=== PATIENT | female | born 2000 | race Caucasian/White ===

== ENCOUNTER 2020-12-03 14:34 | Emergency (ER) | payer MEDICAID, SELFPAY ==
[2020-12-03 14:35] VITALS: BP 143/81; PULSE 96; RESP 18; TEMP 36.6; O2SAT 99; BMI 27.1
[2020-12-03 14:50] VITALS: BP 143/81; PULSE 96; RESP 18; TEMP 36.6; O2SAT 99; BMI 27.1
--- NOTE | 2020-12-03 15:02 | XR_ITS ---
PROCEDURE: XR HAND RT MIN 3V CLINICAL INDICATION: RIGHT THUMB SWELLING COMPARISON: No exams were available for comparison FINDINGS: No fracture or dislocation. No lytic or blastic change. There is normal mineralization. The joint spaces are well-preserved. No significant degenerative/arthritic changes. No erosive changes evident. Other findings:There is soft tissue swelling involving the right thumb. No radiopaque foreign body or soft tissue gas evident. IMPRESSION: Soft tissue swelling of the thumb otherwise negative Dictated by: Alverto Palomares MD 12/03/2020 15:24 Alverto Palomares MD in [place] 12/03/2020 15:24
[2020-12-03 15:14] VITALS: BP 143/81; PULSE 96; RESP 18; TEMP 36.6; O2SAT 99
--- NOTE | 2020-12-03 15:27 | HMH.EDUTC ---
[facility] Disposition Clinical Impression: Cellulitis Qualifiers: Site of cellulitis: unspecified site Qualified Code(s): L03.90 - Cellulitis, unspecified Disposition: Home, Self-Care Condition on Discharge: Good Instructions: Cellulitis, Cephalexin, Trimethoprim/Sulfamethoxazole (Alternative Therapy) Additional Instructions: *Start antibiotic(s) immediately and be sure to take as ordered for the FULL length of time although you may be feeling better or start to see improvement in the next 24-48 hours *Monitor closely. Outlined redness so that you can monitor easier. Follow up immediately for new or worsening symptoms including but not limited to redness, swelling, streaking from site fever or chills. *Warm compress 15 minutes 3-4 times day *Never squeeze or pop these on your own. Seek immediate medical attention next time this occurs *Monitor Temp. Tylenol every 4 hours as needed and ibuprofen every 6 hours as needed (as long as your primary care doctor has told you that it is ok to take both. For fever, aches, pain. ER if no less that 101 despite Tylenol and ibuprofen Follow up with your family doctor/primary care physician in the next 48-72 hours if no improvement Return if needed Straight to ER if any life threatening symptoms Prescriptions: Sulfamethoxazole/Trimethoprim [Bactrim DS tablet] 1 each PO BID 7 Days #14 tab Transmission Status: Pending to [id number] cephALEXin [cephALEXin 500mg capsule*] 500 mg PO Q6H 7 Days #28 cap Transmission Status: Pending to [id number] Referrals: Preeti Henderson MD [Primary Care Provider] - As needed Time of Disposition: 15:36 Medical Decision Making - Tad Inquiry Pt receiving controlled substance: No Tad was queried for this patient: No Vital Signs: 12/03/20 14:35 12/03/20 14:50 12/03/20 15:14 Temperature 97.8 F 97.8 F 97.8 F Temperature Source Oral Oral Pulse Rate 96 H Pulse Rate [Right] 96 H 96 H Respiratory Rate 18 18 18 Blood Pressure 143/81 H Blood Pressure [Right Arm] 143/81 H 143/81 H Blood Pressure Mean [Right Arm] 101 101 Blood Pressure Source [Right Arm] Automatic Cuff Blood Pressure Position [Right Arm] Sitting 02 Sat by Pulse Oximetry 99 99 Oxygen Delivery Method Room Air Room Air Orders (Tests/Meds): ORDERS Category Date Time Status Hand XR right minimum 3 views [XR hand RT min 3V] Stat Exams 12/03/20 15:02 Taken [facility] HPI - General Stated complaint: Rt thumb swollen Time Seen by Provider: 12/03/20 15:27 Mode of Arrival: Ambulatory Source of Information: Patient Limitations: No Limitations Description of Symptoms (Recalled from Triage Doc. by RN): PATIENT C/O SWELLING AND REDNESS TO RIGHT THUMB X 1 WEEK. NO KNOWN INJURY HEENT Symptoms (Recalled from RN notes): No Resp Symptoms (Recalled from RN notes): No Skin Symptoms (Recalled from RN notes): No MS Symptoms (Recalled from RN notes): Yes Functional Status (Recalled from RN notes): WNL - History of Present Illness Provider Complaint: Patient states that she notice her right thumb was swelling so she started poking it with needle and got some pus out of it but now her whole thumb started swelling, red and warm to the touch States that she was worried the infection was spreading so she came in - Related Data Previous Rx's Medication Instructions Recorded Sulfamethoxazole/Trimethoprim 1 each PO BID 7 Days #14 tab 12/03/20 [Bactrim DS tablet] cephALEXin [cephALEXin 500mg 500 mg PO Q6H 7 Days #28 cap 12/03/20 capsule*] Allergies Allergy/AdvReac Type Severity Reaction Status Date / Time No Known Allergies Allergy Verified 12/03/20 15:02 - Worker's Comp Is this a Worker's Comp case?: No [facility] History - Hepatitis A Screen Drug use history?: No High risk sexual behaviors?: No History of sexually transmitted infection?: No Currently employed?: No Childcare worker?: No Do you have indoor plumbing?: Yes Do you have electricity?: Ye
== END 2020-12-03 15:42 | disposition home or self-care (01) ==
LOC: ER 14:50 → UTC 14:51
PROVIDERS: Emergency Provider Nurse Practitioner; PCP Family Medicine
DX: L03.113 Cellulitis of right upper limb (principal)
CPT/HCPCS: 73130; 99202; G0463

== ENCOUNTER 2025-07-01 11:12 | Emergency (ER) | payer MEDICAID, SELFPAY ==
--- NOTE | 2025-07-01 11:22 | HMH.EDGENADL ---
Discharge Plan Disposition Patient Disposition: Home, Self-Care Prescriptions Prescriptions: New [id number]-[id number] [Bromfed DM] 2-30-10 mg/5 mL syrup 5 ml PO Q6H PRN (Reason: sinus symptoms) Qty: 200 0RF No Action sulfamethoxazole-trimethoprim 1 EACH tablet 1 each PO BID 7 Days Qty: 14 0RF cephalexin 500 MG capsule 500 mg PO Q6H 7 Days Qty: 28 0RF Referrals Follow up/Referrals: Preeti Henderson MD [Staff Physician, Medical] - See instructions Activity Restrictions/Add. Instructions Additional Instructions/Restrictions: Increase fluids and rest. May take Tylenol and ibuprofen for pain and fever if needed. If symptoms persist or do not improve please make appointment with PCP or return to ED. Clinical Impressions Clinical Impression: Viral infection Instructions Patient Instructions: DI for Viral Syndrome Print Language Print Language: Andorran Discharge ED Provider: Tyler Jasmine General Adult HPI <Martha Alexander (ED), DRILLER HELPER - Last Filed: 07/01/25 12:21> General Chief complaint: Upper Respiratory Infection Stated complaint: runny nose, cough Time Seen by Provider: 07/01/25 11:16 History of Present Illness HPI narrative: 25-year-old female presents to the ED today for complaint of runny nose, cough, headache for 2 weeks. Patient states that she has had no fevers or chills. No vomiting or diarrhea. She says her worst symptom right now is her headache. Her family is here including her children and her significant other for her same symptoms. Related Data Previous Rx's ?Medication ?Instructions ?Recorded cephalexin 500 mg capsule 500 mg PO Q6H 7 days #28 caps 12/03/20 sulfamethoxazole 800 1 each PO BID 7 days #14 tabs 12/03/20 mg-trimethoprim 160 mg tablet zslsqwsqnmfsgus-pcfzlerjwadmbkc-OL 5 ml PO Q6H PRN sinus symptoms 07/01/25 2 mg-30 mg-10 mg/5 mL oral syrup #200 mL (Bromfed DM) Allergies Allergy/AdvReac Type Severity Reaction Status Date / Time No Known Allergies Allergy Verified 12/03/20 15:02 PFSH <Martha Alexander (ED), DRILLER HELPER - Last Filed: 07/01/25 12:21> [facility] Disclaimer: The information contained in this section may have been updated after the patient was seen, as this information can be updated by other users. Social History Smoking Status: Never smoker alcohol intake: never current occupational status: other Travel in the last 8 weeks?: None Have you lived/traveled outside [place] in past 30 days?: No Contact w/someone who lives/traveled outside [place] past 30 days?: No Exposure to someone with infectious disease in past 14 days?: No Do you have a fever (greater than 100.4 F or 38 C)?: No Have you tested positive for COVID-19?: No Exposed to someone with COVID-19 in past 14 days?: No Do you have a sore throat?: No Do you have a cough?: No Do you have any weakness?: No Do you have any diarrhea?: No Are you experiencing any unusual bleeding?: No Do you have any muscle aches/pain?: No Do you have any abdominal pain?: No Are you experiencing loss of taste or smell?: No <Martha Alexander (ED), DRILLER HELPER - Last Filed: 07/01/25 12:21> ROS Obtained: Yes Systems reviewed as appropriate & no additional complaints except as documented Constitutional Constitutional: Reports as per HPI Physical Exam <Martha Alexander (ED), DRILLER HELPER - Last Filed: 07/01/25 12:21> General General appearance: alert and in no apparent distress Head Head exam: normocephalic Eye Eye exam: Present PERRL and EOMI ENT ENT exam: Present normal oropharynx and mucous membranes moist Neck Neck exam: Present full ROM and trachea midline Respiratory Respiratory exam: Present normal lung sounds bilaterally Cardiovascular Cardiovascular exam: Present regular rate, normal rhythm, normal heart sounds, +S1 and +S2 Abdominal Exam Abdominal exam: Present soft and normal bowel sounds Extremities Exam Extremities exam: Present full ROM Neurological Exam Neurological exam: Present alert and oriented X3 Skin Skin exam: Present warm and dry Medical Decision Making <Martha Alexander (ED), DRILLER HELPER - Last Filed: 07/01/25 12:21> Medical Records Screening: Per USPSTF and CDC recommendations, given the prevalence of disease in our region, it is our hospital?s policy to screen for HIV and viral Hepatitis for all patients aged 18 and over and those with ongoing risk factors. Tad Inquiry Pt receiving controlled substance: No Tad was queried for this patient: No Vital Signs: 07/01/25 11:31 07/01/25 12:00 Temperature 98.2 F Temperature Source Oral Pulse Rate [Right] 91 H Respiratory Rate 18 Blood Pressure [Right Arm] 132/73 Blood Pressure Mean [Right Arm] 92 Blood Pressure Source [Right Arm] Automatic Cuff Blood Pressure Position [Right Arm] Standing 02 Sat by Pulse Oximetry 98 100 Oxygen Delivery Method Room Air Lab Data Lab Results 07/01/25 11:57: Urine HCG, Qual Negative Orders (Tests/Meds): ED MEDICATIONS Discontinued Medications Generic Name Dose Route Start Last Admin Trade Name Freq PRN Reason Stop Dose Admin Acetaminophen 1,000 mg 07/01/25 11:31 07/01/25 11:42 Acetaminophen 500mg Tab PO 07/01/25 11:32 1,000 mg ONCE ONE Administration Dexamethasone Sodium Phosphate 8 mg 07/01/25 11:35 07/01/25 11:40 Dexamethasone 4mg/Ml 5ml Mdv IM 07/01/25 11:36 8 mg ONCE ONE Administration Ketorolac Tromethamine 30 mg 07/01/25 11:31 07/01/25 11:42 Ketorolac 30mg/Ml Vial IM 07/01/25 11:32 30 mg ONCE ONE Administration ORDERS Category Date Time Status Chest XR -- portable [XR chest portable] Stat Exams 07/01/25 11:31 Taken Rapid PCR Covid and Flu A/B Stat Lab 07/01/25 11:20 Received Urine , HCG Qual. Stat Lab 07/01/25 11:57 Completed Medical Decision Narrative: patient is a 25-year-old female presenting to the emergency department for evaluation of cough, headache and runny nose. Patient is hemodynamically stable and nontoxic-appearing upon arrival, afebrile. Differential diagnosis includes flu, other viral illness, headache among others. Workup will be conducted with specific imaging and swab. Initial inventions include analgesics. Chest x-ray is read by Dr. Jasmine as negative. test also negative. Patient will be discharged with medication for cough. Patient safe for discharge home <Tyler Jasmine MD - Last Filed: 07/01/25 12:25> Vital Signs: 07/01/25 11:31 07/01/25 12:00 Temperature 98.2 F Temperature Source Oral Pulse Rate [Right] 91 H Respiratory Rate 18 Blood Pressure [Right Arm] 132/73 Blood Pressure Mean [Right Arm] 92 Blood Pressure Source [Right Arm] Automatic Cuff Blood Pressure Position [Right Arm] Standing 02 Sat by Pulse Oximetry 98 100 Oxygen Delivery Method Room Air Lab Data Lab Results 07/01/25 11:57: Urine HCG, Qual Negative Orders (Tests/Meds): ED MEDICATIONS Discontinued Medications Generic Name Dose Route Start Last Admin Trade Name Milton PRN Reason Stop Dose Admin Acetaminophen 1,000 mg 07/01/25 11:31 07/01/25 11:42 Acetaminophen 500mg Tab PO 07/01/25 11:32 1,000 mg ONCE ONE Administration Dexamethasone Sodium Phosphate 8 mg 07/01/25 11:35 07/01/25 11:40 Dexamethasone 4mg/Ml 5ml Mdv IM 07/01/25 11:36 8 mg ONCE ONE Administration Ketorolac Tromethamine 30 mg 07/01/25 11:31 07/01/25 11:42 Ketorolac 30mg/Ml Vial IM 07/01/25 11:32 30 mg ONCE ONE Administration ORDERS Category Date Time Status Chest XR -- portable [XR chest portable] Stat Exams 07/01/25 11:31 Taken Rapid PCR Covid and Flu A/B Stat Lab 07/01/25 11:20 Received Urine , HCG Qual. Stat Lab 07/01/25 11:57 Completed Medical Decision Narrative: patient is a 25-year-old female presenting to the emergency department for evaluation of cough, headache and runny nose. Patient is hemodynamically stable and nontoxic-appearing upon arrival, afebrile. Differential diagnosis includes flu, other viral illness, headache among others. Workup will be conducted with specific imaging and swab. Initial inventions include analgesics. Chest x-ray is read by Dr. Jasmine as negative. test also negative. Patient will be discharged with medication for cough. Patient safe for discharge home. Tyler Jasmine MD: I was consulted by the RIGO, and we discussed the complexity of the problems being addressed. I approved the treatment and management plan for this patient's care in the emergency department, thus performing a substantive portion of the medical decision making. Additional diagnostic workup with hematologic labs was considered but patient is well-appearing will be deferred. Financial Center Manager disclaimer Much of this encounter note is an electronic system planning engineer spoken language to printed text. Electronic system planning engineer of the spoken language may permit errors. Although I have reviewed the note, some errors may still exist. Critical Care <Martha Alexander (ALBERTO), DRILLER HELPER - Last Filed: 07/01/25 12:21> Critical Care Time Critical Care Time: No
[2025-07-01 11:27] LABS: Coronavirus 19, PCR Not Detected (NotDetected); Influenza A, PCR Not Detected (NotDetected); Influenza B, PCR Not Detected (NotDetected)
[2025-07-01 11:31] VITALS: BP 132/73; PULSE 91; RESP 18; TEMP 36.8; O2SAT 98; BMI 34.6
--- NOTE | 2025-07-01 11:31 | XR_ITS ---
FINAL REPORT CLINICAL HISTORY: short of breath FINDINGS: A portable view of the chest was obtained. Cardiac and mediastinal silhouettes are within normal limits. The lungs are clear. There is no pleural effusion or pneumothorax. IMPRESSION: No acute process on this portable exam. Reviewed, Interpreted and Dictated by Lissa Gilbert MD Transcribed by Ely Sandhu Authenticated and [facility]
[2025-07-01] MEDS: DEXAMETHASONE 4MG/ML 5ML MDV 8 MG IM (11:40)
[2025-07-01] MEDS: KETOROLAC 30MG/ML VIAL 30 MG IM (11:42)
[2025-07-01] MEDS: ACETAMINOPHEN 500MG TAB 1000 MG PO (11:42)
[2025-07-01 12:00] VITALS: O2SAT 100
[2025-07-01 12:06] LABS: Urine Pregnancy, HCG Qual. Negative (Negative)
[2025-07-01 12:28] VITALS: BP 132/73; PULSE 91; RESP 16; TEMP 36.8; O2SAT 100
== END 2025-07-01 12:34 | disposition home or self-care (01) ==
PROVIDERS: Nurse Practitioner; Emergency Provider Emergency Medicine
DX: R51.9 Headache, unspecified (principal); R09.81 Nasal congestion; R05.9 Cough, unspecified; B34.9 Viral infection, unspecified
CPT/HCPCS: 71045; 81025; 87636; 96372; 99283; 99284; J1100; J1885